=== PATIENT | male | born 1990 | race Asian ===

== ENCOUNTER 2020-01-07 09:49 | Outpatient (CLI) | payer OTHER, SELFPAY | END 2020-01-07 09:50 | disposition home or self-care (01) | LOC: ANHAUDIO 09:51 | PROVIDERS: PCP Otolaryngology; Visit Provider Otolaryngology | DX: H91.93 Unspecified hearing loss, bilateral (principal) | CPT/HCPCS: 92557; 92567 ==

== ENCOUNTER 2020-01-27 10:49 | Outpatient (RCR) | payer OTHER, SELFPAY | END 2020-01-27 23:59 | disposition home or self-care (01) | LOC: ANHAUDIO 10:49 | PROVIDERS: PCP Otolaryngology; Visit Provider Otolaryngology | DX: Z46.1 Encounter for fitting and adjustment of hearing aid (principal) | CPT/HCPCS: V5160; V5258 ==

== ENCOUNTER 2020-06-12 12:06 | Outpatient (RCR) | payer OTHER, SELFPAY | END 2020-06-12 23:59 | disposition home or self-care (01) | LOC: ANHAUDIO 12:06 | PROVIDERS: PCP Otolaryngology; Visit Provider Otolaryngology | DX: Z46.1 Encounter for fitting and adjustment of hearing aid (principal) | CPT/HCPCS: 99199 ==